=== PATIENT | male | born 1960 | race Two or more races ===

== ENCOUNTER → 2023-11-12 14:35 | Outpatient (REF) | payer BC, SELFPAY | LOC: HWRAD 14:35 | PROVIDERS: ATTENDING PHYSICIAN Family Medicine | DX: M79.671 Pain in right foot (principal) | CPT/HCPCS: 73630 ==

== ENCOUNTER → 2024-05-03 09:32 | Outpatient (REF) | payer BC, SELFPAY | LOC: MRI 3T 09:32 | PROVIDERS: ATTENDING PHYSICIAN Specialist | DX: R97.20 Elevated prostate specific antigen [PSA] (principal); Z80.42 Family history of malignant neoplasm of prostate | CPT/HCPCS: 72197; A9575 ==